=== PATIENT | female | born 1980 | race Caucasian/White ===

== ENCOUNTER 2023-12-28 12:00 | Emergency (ER) | payer OTHER ==
[~2023-12-28] VITALS: Ht 157.5 cm; Wt 58.1 kg
[2023-12-28 12:08] VITALS: O2SAT 98
[2023-12-28] MEDS ORDERED: diphenhydrAMINE 50 MG/1 ML VIAL ONE (12:33)
[2023-12-28] MEDS ORDERED: METOCLOPRAMIDE HCL 10 MG/2 ML VIAL ONE (12:33)
[2023-12-28] MEDS ORDERED: KETOROLAC TROMETHAMINE 30 MG INJ ONE (12:33)
[2023-12-28] MEDS: METOCLOPRAMIDE HCL 10 MG/2 ML VIAL IV ONE (12:46)
[2023-12-28] MEDS: KETOROLAC TROMETHAMINE 30 MG INJ IVP ONE (12:46)
[2023-12-28] MEDS: diphenhydrAMINE 50 MG/1 ML VIAL IV ONE (12:46)
[2023-12-28] MEDS: IV NS 1000 ML 1,000 ML IV ONE (12:46)
[2023-12-28] MEDS ORDERED: NIFE-34 PO (12:56)
[2023-12-28] MEDS ORDERED: ALLO100T PO (12:56)
[2023-12-28] MEDS ORDERED: TAMS-3 PO (12:56)
[2023-12-28] MEDS ORDERED: SACU1TAB7 PO (12:56)
[2023-12-28] MEDS ORDERED: BIMA2.5D5 RIGHTEYE (12:56)
[2023-12-28] MEDS ORDERED: GUAI600T53 PO (12:56)
[2023-12-28] MEDS ORDERED: MONT10TA22 PO (12:56)
[2023-12-28] MEDS ORDERED: FLUT1BLS13 IH (12:56)
[2023-12-28] MEDS ORDERED: DORZ10DR RIGHTEYE (12:56)
[2023-12-28] MEDS ORDERED: FURO80TA3 PO (12:56)
[2023-12-28] MEDS ORDERED: SILD20TA PO (12:56)
[2023-12-28] MEDS ORDERED: VITAMIN D PO (12:56)
[2023-12-28] MEDS ORDERED: ACET-2605 PO (12:56)
[2023-12-28] MEDS ORDERED: APIX2.5T PO (12:56)
[2023-12-28] MEDS ORDERED: TIOT18CA3 IH (12:56)
[2023-12-28] MEDS ORDERED: OMEP40CA21 PO (12:56)
[2023-12-28] MEDS ORDERED: BRIM5DRO3 EACHEYE (12:57)
== END 2023-12-28 14:39 | disposition home or self-care (01) ==
LOC: ER 12:04
DX: G43.909 Migraine, unspecified, not intractable, without status migrainosus (principal); Z79.899 Other long term (current) drug therapy
CPT/HCPCS: 99284; 96374; 96375; 96361; J1200; J1885; J2765; J7040; A4606